=== PATIENT | female | born 1980 | race Caucasian/White ===

== ENCOUNTER 2023-06-04 09:33 | Outpatient (CLI) | payer BC, MEDICAID, SELFPAY ==
--- NOTE | 2023-06-04 09:46 | MM_ITS ---
WS: [id number] DIAGNOSTIC BILATERAL DIGITAL BREAST TOMOSYNTHESIS MAMMOGRAPHY WITH CAD RIGHT breast ultrasound, limited HISTORY: R BREAST LUMP @ 3:00/FAMILY HX OF BREAST CA COMPARISON: None available. TECHNIQUE: Bilateral craniocaudad, mediolateral oblique, and mediolateral views are submitted with to mosynthesis and SM. Spot compression RIGHT CC and MLO. Computer aided detection utilized. Breast composition: The breasts are heterogeneously dense, which may obscure small masses. Triangular marker is placed along the medial aspect of the RIGHT breast at 3:00. There is no underlying mass id entified. There are 2 adjacent well-circumscribed masses towards 12:00 of the RIGHT breast for which ultrasound will also be recommended. LEFT breast is negative. RIGHT breast ultrasound, limited. There are 2 adjacent simple cysts RIGHT breast at 12:00, 2 cm from the nipple. The largest measures 1 .6 x 1.0 x 1.9 cm. There is an additional cyst at 2:00 which corresponds to the palpable abnormality. This is a simple cyst measuring 1.0 x 0.8 x 0.9 cm. No solid mass. IMPRESSION: Note: Unable to retrieve prior outside mammograms for comparison. No mammograms were available. MM/[place] [id number] BI-RADS: 2-Benign FOLLOW UP: 1 Year Follow-up
== END 2023-06-04 09:34 | disposition home or self-care (01) ==
PROVIDERS: Visit Provider Nurse Practitioner Family
DX: R92.331 Mammographic heterogeneous density, right breast (principal); N60.01 Solitary cyst of right breast; Z80.3 Family history of malignant neoplasm of breast
CPT/HCPCS: 76642; 77062; G0279

== ENCOUNTER → 2023-10-10 10:09 | Outpatient (BNVA) | payer BC, MEDICAID, SELFPAY | PROVIDERS: Referring Provider Nurse Practitioner Family; Visit Provider Nurse Practitioner | DX: M67.431 Ganglion, right wrist (principal); M25.531 Pain in right wrist | CPT/HCPCS: 36415; 73110; 80053; 81003; 85025 ==

== ENCOUNTER 2023-10-16 06:41 | Day surgery (SDC) | payer BC, MEDICAID, SELFPAY ==
[2023-10-16] VITALS (10 sets, daily range): BP systolic 105–132; BP diastolic 68–87; PULSE 65–91; RESP 16–18; TEMP 36.1–36.8; O2SAT 95–100
[2023-10-16] MEDS: sodium chloride 0.9% 1,000 ML 30 ML IV (06:56)
[2023-10-16] MEDS: acetaminophen 1,000 MG/100 ML PIGGYBACK 400 MG IV (06:57)
[2023-10-16] MEDS: CELEcoxib 200 mg Capsule 400 MG PO (06:57)
[2023-10-16] MEDS: gabapentin 300 mg Capsule PO (06:57)
--- NOTE | 2023-10-16 07:04 | ANES.PREANE2 ---
Pre-Anesthetic Assessment Height/Weight: Height 1.57 m Operation Date: 10/16/23 07:00 Proposed Procedures p Excision Of Ganglion Cyst Removal Of Ganglion Cyst(Right) - Li Dumont MD Familial anesthetic complications: None Was Beta Ernesto taken within 24 hours: N/A Was Clonidine taken within 24 hours: N/A Last intake: > 8hrs Social No alcohol and No tobacco Exam alert, oriented x 3, clear to auscultation bilaterally and regular rate & rhythm Airway Mallampati: Class II Dentition: full Anesthetic Plan ASA status: 1 Anesthesia: General Risk of > 500 ml blood loss (7ml/kg in children): No Medications/Allergies Home Medications Medication Instructions Recorded Confirmed Last Taken Type famotidine 10 mg tablet 10 mg PO DAILY 10/15/23 10/15/23 10/15/23 History Allergies Allergy/AdvReac Type Severity Reaction Status Date / Time codeine Allergy ALGY-Rash Verified 10/15/23 08:34 Current Medications Generic Name Dose Route Start Last Admin Trade Name Freq PRN Reason Stop Dose Admin Sodium Chloride 1,000 mls @ 30 mls/hr 10/16/23 06:45 10/16/23 06:56 Sodium Chloride 0.9% IV 10/17/23 06:44 30 mls/hr .Q24H REY Administration PFSH Anesthesia Medical History (Updated 10/14/23 @ 16:46 by ANNA Pan) Ganglion cyst of dorsum of right wrist Social History Smoking and tobacco/nicotine status: former use of tobacco/nicotine Female Reproductive History Date of last menstrual period: 10/15/23 Data Anesthesia Cardiac Studies: No Data to Display
--- NOTE | 2023-10-16 07:06 | W.PM.OPSUD ---
Surgery/Procedure H&P Update DATE OF PROCEDURE: October 16, 2023 DATE H&P PERFORMED: 10/10/23 H&P UPDATE INFORMATION: I have reviewed H&P completed within last 30 days, I have examined patient prior to procedure, No changes to prior documentation and H&P is in [facility] [place] on date indicated PLANNED PROCEDURE: Operation Date: 10/16/23 07:00 Proposed Procedures p Excision Of Ganglion Cyst Removal Of Ganglion Cyst(Right) - Li Dumont MD Related Problem List Diagnoses (1) Ganglion cyst of dorsum of right wrist:
[2023-10-16 07:14] LABS: OR HCG Qualitative Urine Negative (Negative)
[2023-10-16] MEDS: ceFAZolin 2,000 mg SDV 2000 MG IVP (07:16)
[2023-10-16] MEDS: BUPivacaine 0.5% INJ 30 mL INJECTION (07:51)
--- NOTE | 2023-10-16 08:07 | PM.OP ---
Operative Report Date of procedure: October 16, 2023 Pre-op diagnosis: Right dorsal wrist ganglion Post-op diagnosis: Right dorsal wrist ganglion Post-op findings: Dorsal wrist ganglion Procedure done: Excision dorsal wrist ganglion right wrist Specimens removed/disposition: Dorsal wrist ganglion sent to pathology Surgeon: Li Dumont MD [employer] Operations Officer: None Anesthesia: General (Per LMA, ASA 2) Estimated blood loss (mL): 2 Tourniquet time (min): 13 (At 250 mmHg) IV fluids (mL): 400 Urine output (mL): 0 (No Tolbert) Complications: None Findings: Dorsal wrist ganglion Condition: stable Disposition: PACU (Then return to same-day surgery for discharge to home) Brief History: This 43-year-old woman presented today for excision of right dorsal wrist ganglion. The patient was seen in the clinic and after discussion, have this surgically excised. She has had this ganglion for several months, and she states she now has limited range of motion due to the pain from the cyst. She states it also hurts to make a fist. After discussion in the office, she wished to proceed with excision. Risks and complications were discussed with her and consents were signed. Procedure: The patient was brought to the operating theater. Anesthesia provided general anesthesia per LMA, ASA 2. The patient's right upper extremity was prepped and draped in usual fashion utilizing DuraPrep. It was draped free. Surgical pause was performed, and confirmation of preoperative prophylactic antibiotics was confirmed. The arm was exsanguinated. Tourniquet was elevated to 250 mmHg for a total tourniquet time of 13 minutes. Attention was directed to the dorsum of the wrist. The ganglion was palpable, and soft tissues were marked. A transverse incision was then made over the ganglion. Dissection continued through the skin and soft tissues primarily by blunt dissection with scissors. Care was taken to protect neurovascular structures. The ganglion was then shelled out of the soft tissues. It was tracked down to its broad-based connection to the dorsal wrist capsule. It was excised there. There is no soft tissue to close in that area. Following this, the wound was irrigated. Attention was then directed to closure. Closure was accomplished with a running 4-0 Monocryl subcuticular closure. We injected the wound with half percent Marcaine plain for local anesthetic. This was followed by Dermabond, Steri-Strips, and an OpSite. We then placed a compression dressing including sterile soft roll and an Luis wrap. Tourniquet was released after 13 minutes. Hemostasis was obtained prior to placement of the dressing. Patient was returned to Recovery Room in a satisfactory condition and will be discharged home to follow-up with me in the office. There were no complications, and the ganglion was sent to pathology for evaluation. Related Problem List Diagnoses (1) Ganglion cyst of dorsum of right wrist:
--- NOTE | 2023-10-16 09:20 | ANE.PACU2 ---
Inpatient post-anesthesia follow up: Airway intact: Yes Vital signs: Temperature 97.7 F Pulse Rate 65 Respiratory Rate 16 Blood Pressure 124/81 Pulse Oximetry 99 Oxygen Delivery Me thod Room Air Oxygen Flow Rate 6 Fraction of Inspir ed Oxygen Hydration adequate: Yes Nausea and vomiting: No Pain level: 1 Mental status: Baseline
== END 2023-10-16 09:20 | disposition home or self-care (01) ==
PROVIDERS: Anesthesiology; PCP Nurse Practitioner Family; Visit Provider Specialist
PROC: (CPT 25111; principal; 2023-10-16 07:00)
DX: M67.431 Ganglion, right wrist (principal); Z87.891 Personal history of nicotine dependence
CPT/HCPCS: 25111; 81025; 88304; J0131; J0690; J2704; J3010; J3490; J7030

== ENCOUNTER 2024-06-25 15:08 | Outpatient (CLI) | payer BC, MEDICAID, SELFPAY ==
--- NOTE | 2024-06-25 15:11 | MM_ITS ---
WS: [id number] BILATERAL 3D TOMOSYNTHESIS DIGITAL SCREENING MAMMOGRAPHY WITH CAD CLINICAL INFORMATION: SCREENING HISTORY: Screening mammogram. No current complaints. COMPARISON: 2023 TECHNIQUE: Bilateral CC and MLO views. FINDINGS: The breasts are composed of heterogeneous fibroglandular density tissue, which can limit the detection of small underlying mass lesions. No suspicious mass, asymmetry, calcifications, or architectural distortion. No evidence of malignancy. Bilateral nodularity RIGHT greater than LEFT is similar in appe arance to previous. Previous RIGHT breast ultrasound was performed which demonstrated breast cysts. MM/MM [facility] tomosynthesis [id number] IMPRESSION: DENSITY: The breasts are heterogeneously dense, which may obscure small masses. BI-RADS: 2 - Benign FOLLOW UP: 1 Year Follow-up Recommend return to annual screening mammography.
== END 2024-06-25 15:09 | disposition home or self-care (01) ==
LOC: RAD 15:09
PROVIDERS: PCP Nurse Practitioner Family; Visit Provider Nurse Practitioner Family
DX: Z12.31 Encounter for screening mammogram for malignant neoplasm of breast (principal); R92.333 Mammographic heterogeneous density, bilateral breasts; N63.20 Unspecified lump in the left breast, unspecified quadrant; N60.11 Diffuse cystic mastopathy of right breast
CPT/HCPCS: 77063; 77067